=== PATIENT | female | born 1960 | race African-American/Black ===

== ENCOUNTER 2018-09-26 09:17 | Emergency (ER) | payer SELFPAY ==
[2018-09-26] MEDS ORDERED: NITROGLYCERIN (SL) 0.4 MG TAB SL (10:00)
[2018-09-26] MEDS: NITROGLYCERIN 2% 1 GM OINT PKT TD (10:01)
[2018-09-26] MEDS: ASPIRIN 81 MG TAB PO (10:01)
[2018-09-26 10:06] LABS: ADD MAN DIFF? NO
[2018-09-26 10:08] LABS: WHITE BLOOD COUNT 4.2 10^3/ul (4.8-10.8)
[2018-09-26 10:08] LABS: BASOPHILS % 0.7 % (0.0-2.0); EOSINOPHILS # 0.1 10^3/ul (0.0-0.5); EOSINOPHILS % 1.7 % (0.0-7.0); HEMATOCRIT 40.2 % (37.0-47.0); LYMPHOCYTES % 23.3 % (15.0-51.0); MEAN CORPUSCULAR HEMOGLOBIN 31.9 pg (29.0-33.0); MEAN CORPUSCULAR HGB CONC 32.3 g/dl (32.0-37.0); MEAN CORPUSCULAR VOLUME 98.5 fl (82.0-101.0); MEAN PLATELET VOLUME 9.6 fl (7.4-10.4); MONOCYTE # 0.3 10^3/ul (0.3-0.9); MONOCYTES % 7.2 % (0.0-11.0); NEUTROPHIL # 2.8 10^3/ul (1.6-7.5); NEUTROPHILS % 66.9 % (39.0-77.0); PLATELET COUNT 198 10^3/UL (140-415); RED BLOOD COUNT 4.08 10^6/ul (4.20-5.40); RED CELL DISTRIBUTION WIDTH 11.8 % (11.5-14.5)
[2018-09-26 10:27] LABS: ANION GAP 8 (5-13); BLOOD UREA NITROGEN 17 mg/dl (7-20); CALCIUM 9.5 mg/dl (8.4-10.2); CARBON DIOXIDE 28 mmol/L (21-31); CHLORIDE 108 mmol/L (97-110); CREATININE 0.71 mg/dl (0.44-1.00); Estimated GFR > 60 mL/min (>60); GLUCOSE 93 mg/dl (70-220); POTASSIUM 5.4 mmol/L (3.5-5.1); SODIUM 144 mmol/L (135-144)
[2018-09-26 10:38] LABS: TROPONIN-I < 0.012 ng/ml (0.000-0.120)
== END 2018-09-26 11:40 | disposition home or self-care (01) ==
LOC: E/R 09:17
DX: I10 Essential (primary) hypertension (principal); R40.2142 Coma scale, eyes open, spontaneous, at arrival to emergency department; R40.2362 Coma scale, best motor response, obeys commands, at arrival to emergency department; R40.2252 Coma scale, best verbal response, oriented, at arrival to emergency department; Z96.642 Presence of left artificial hip joint
CPT/HCPCS: 36415; 71045; 80048; 84484; 85025; 93005; 99285-25